=== PATIENT | female | born 1965 | race Caucasian/White ===

== ENCOUNTER 2019-02-14 03:20 | Emergency (ER) | payer MEDICARE ==
--- NOTE | 2019-02-14 04:24 | ED ---
Shortness of Breath - HPI Summary HPI Summary: A 53 y/o female brought in by [facility] ambulance presents to [facility] with a chief complaint of SOB this morning. She was given 1 nebulizer treatment en route. She says that when she woke up she felt like she could not catch her breath. The patient has a Hx of asthma and is an occasional smoker. She notes that she has been hospitalized before for SOB. She has a Hx of sleep apnea and wakes up with headaches. She has albuterol pumps and tried it this morning, but it did not alleviate her symptoms. - History of Current Complaint Chief Complaint: EDShortnessOfBreath Time Seen by Provider: 02/14/19 04:11 Hx Obtained From: Patient Onset/Duration: Sudden Onset, Lasting Minutes, Still Present Timing: Constant Current Severity: Moderate Dyspnea At: Rest Aggravating Factors: Nothing Alleviating Factors: Nothing Associated Signs & Symptoms: Cough (Nonproductive) - Allergy/Home Medications Allergies/Adverse Reactions: Allergies Allergy/AdvReac Type Severity Reaction Status Date / Time cat dander Allergy Unknown Verified 08/06/18 15:30 Reaction Details doxycycline Allergy Hives Verified 08/06/18 15:28 erythromycin base Allergy Hives Verified 08/06/18 15:28 mold Allergy Unknown Verified 08/06/18 15:30 Reaction Details pollen extracts Allergy Unknown Verified 08/06/18 15:30 Reaction Details Home Medications: Home Medications Benzonatate CAP* [Tessalon 100 MG CAP*] 100 mg PO TID PRN 02/14/19 [History Confirmed 02/14/19] Dicyclomine CAP* [Bentyl CAP*] 10 mg PO TID PRN 02/14/19 [History Confirmed ] Melatonin [Meladox] 3 mg PO BEDTIME 02/14/19 [History Confirmed 02/14/19] Mirabegron [Myrbetriq] 25 mg PO DAILY 02/14/19 [History Confirmed 02/14/19] PMH/Surg Hx/FS Hx/Imm Hx Respiratory History: Reports: Hx Asthma, Hx Sleep Apnea Sensory History: Denies: Hx Deafness EENT History: Denies: Hx Deafness - Immunization History Immunizations Up to Date: Yes Infectious Disease History: No Infectious Disease History: Denies: Traveled Outside the [place] in Last 30 Days - Family History Known Family History: Negative: Blood Disorder - Social History Alcohol Use: Rare Substance Use Type: Reports: None Smoking Status (MU): Current Some Day Smoker Review of Systems Negative: Fever Positive: Shortness Of Breath, Cough All Other Systems Reviewed And Are Negative: Yes Physical Exam - Summary Physical Exam Summary: Constitutional: Well-developed, Well-nourished, Alert. (-) Distressed Skin: Warm, Dry HENT: Normocephalic; Atraumatic Eyes: Conjunctiva normal Neck: Musculoskeletal ROM normal neck. (-) JVD, (-) Stridor, (-) Tracheal deviation Cardio: Rhythm regular, bradycardic in the 50s, Heart sounds normal; Intact distal pulses; symmetric. Pulmonary/Chest wall: Effort normal. (-) Respiratory distress, (-) Wheezes, (-) Rales Abd: Soft, (-) tenderness, (-) Distension, (-) Guarding, (-) Rebound Musculoskeletal: (-) Edema Neuro: Alert, Oriented x3 Psych: Mood and affect Normal Triage Information Reviewed: Yes Vital Signs On Initial Exam: Initial Vitals Temp Pulse Resp BP Pulse Ox 97.3 F 50 17 140/66 97 02/14/19 03:32 02/14/19 03:32 02/14/19 03:32 02/14/19 03:32 02/14/19 03:32 Vital Signs Reviewed: Yes Diagnostics - Vital Signs Vital Signs Temp Pulse Resp BP Pulse Ox 02/14/19 03:32 97.3 F 50 17 140/66 97 - Laboratory Lab Statement: Any lab studies that have been ordered have been reviewed, and results considered in the medical decision making process. Course/Dx - Course Course Of Treatment: A 53 y/o female brought in by [facility] ambulance presents to [facility] with a chief complaint of SOB this morning. The physical exam was unremarkable except that she was bradycardic in the 50s. The patient notes that she can follow up with Dr. Hay, funeral director/embalmer/owner. The patient will be discharged and follow up with her PCP and Dr. Hay. The patient is agreeable with this plan. - Diagnoses Provider Diagnoses: Sleep apnea Discharge - Sign-Out/Discharge Documenting (check all that apply): Patient Departure - DC Patient Received Moderate/Deep Sedation with Procedure: No - Discharge Plan Condition: Good Disposition: HOME Patient Education Materials: Sleep Apnea (DC) Referrals: Thomas Chandler MD [Primary Care Provider] - - Billing Disposition and Condition Condition: GOOD Disposition: Home - Attestation Statements Document Initiated by Raffi: Yes Documenting Scribe: Germán Ivan Provider For Whom Raffi is Documenting (Include Credential): Curtis Quinones MD Scribjeff Attestation: IGermán, scribed for Curtis Quinones MD on 02/14/19 at 0630. Scribe Documentation Reviewed: Yes Provider Attestation: The documentation as recorded by the Germán pizano accurately reflects the service I personally performed and the decisions made by me, Curtis Quinones MD Status of Scribe Document: Viewed
[2019-02-14 04:46] VITALS: BP 138/68
== END 2019-02-14 04:56 | disposition home or self-care (01) ==
LOC: ED 03:20
DX: G47.30 Sleep apnea, unspecified (principal); F17.210 Nicotine dependence, cigarettes, uncomplicated; Z79.899 Other long term (current) drug therapy
CPT/HCPCS: 99283

== ENCOUNTER 2019-03-06 14:29 | Emergency (ER) | payer MEDICARE ==
--- OUTSIDE RECORDS SUMMARY | 2019-03-06 14:34 | XMS REPORT | Continuity of Care Document ---
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 ETOH Use Occasionally consumes alcohol Tobacco Use Start: Unknown End: Patient is a former Unknown smoker Tobacco Use Start: Unknown End: Patient is a former quit in 2000 Unknown smoker Smoking Status Reviewed: 02/26/19 Patient is a former quit in 2000 smoker Exercise Exercises sporadically walks on occ Type/Frequency Allergies, Adverse Reactions, Alerts Active Allergies Reaction Severity Comments Date Cat Dander swelling 05/03/2018 [place] Needle Oil (Pinus itchy eyes and 05/03/2018 [place]) sneezing Pollen itchy eyes, runny nose 05/03/2018 Mold itchy eyes, runny nose 05/03/2018 Erythromycin hives and vomit 06/20/2018 Doxycycline hives/vomits 06/20/2018 Medications Active Medications SIG Qnty Indications Ordering Date Provider Xopenex HFA 2 puffs by mouth 3units Thomas Timmons 11/26/2018 every 4 hours as Jo Ann Chandler 45mcg/Act Aerosol needed Advair Diskus 1 puff twice a day 60units Thomas Timmons 10/29/2018 Jo Ann Chandler 250-50mcg/Dose Aerosol Duloxetine HCL take 1 capsule by 60caps R51 Thomas Timmons 10/18/2018 30mg mouth every morning Jo Ann Chandler Caps DR Nunes for 1 week, then 2 tabs daily Albuterol Sulfate every 4-6hrs.as 75ml Thomas E. 10/11/2018 directed Jo Ann Chandler (2.5mg/3ML) 0.083% Nebulizer Dicyclomine HCL take 1 tablet by 120tabs Thomas E. 08/06/2018 mouth 4 times a day Jo Ann Chandler 20mg Tablets as needed Fish Oil 1 by mouth twice a Unknown 1000mg day Capsules Fluticasone 2 sprays each 16gm Thomas E. Propionate nostril daily Jo Ann Chandler 50mcg/Act Suspension Montelukast Sodium 1 by mouth every day 90tabs Thomas E. Jo Ann Chandler 10mg Tablets Oxygen please use o2 at Unknown Misc 2l/min during exertion, pls provide pt with portable o2 concentrator Aspirin 1 by mouth every day 90tabs Thomas EJessica 81mg Jo Ann Chandler Tablets Omeprazole 1 by mouth every day 90caps Thomas E. 20mg Jo Ann Chandler Capsules Lyrica 1 four times daily 120caps Thomas E. 100mg Jo Ann Chandler Capsules Myrbetriq one daily 90tabs Thomas E. 25mg Jo Ann Chandler Tablets ER 24HR Elmiron take 1 capsule by 270caps Thomas E. 100mg mouth three times Jo Ann Chandler Capsules daily as needed Estradiol one daily 90tabs Thomas E. 2mg Jo Ann Chandler Tablets History Medications Nebulizer every 4-6 hours as 1units Thomas Timmons 10/29/2018 - Misc needed Jo Ann Chandler 10/29/2018 Xopenex HFA 2 puffs inhaled 45gm Thomas E. 08/06/2018 - 45mcg/Act every 4h as needed Jo Ann Chandler 11/26/2018 Aerosol for shortness of breath. Clozapine one at bedtime 30tabs Thomas Timmons 05/15/2018 - 200mg Jo Ann Chandler 06/18/2018 Tablets Advair Diskus inhale one puff by mitchel Timmons - mouth twice a day Jo Ann Chandler 10/29/2018 100-50mcg/Dose Aerosol Albuterol prn Unknown - 10/11/2018 Quetiapine Fumarate 1 tab by mouth Unknown - every night at 10/18/2018 200mg Tablets bedtime Immunizations CPT Code Status Date Vaccine Lot # [id number] Given 08/21/2014 Tetanus And Diptheria (Td) For Adult Use Preservative Free 22221 Given Unknown Pneumonia Vaccine Vital Signs Date Vital Result Comment 02/26/2019 2:34pm Height 62 inches 5'2" Weight 158.25 lb Heart Rate 76 /min BP Systolic 120 mmHg BP Diastolic 76 mmHg Body Temperature 97.9 F O2 % BldC Oximetry 96 % BMI (Body Mass Index) 28.9 kg/m2 10/18/2018 3:55pm Height 62 inches 5'2" Weight 130.00 lb Heart Rate 84 /min BP Systolic Sitting 95 mmHg BP Diastolic Sitting 77 mmHg Body Temperature 97.3 F O2 % BldC Oximetry 92 % BMI (Body Mass Index) 23.8 kg/m2 08/15/2018 11:26am Height 62 inches 5'2" Weight 128.00 lb with boots Heart Rate 80 /min BP Systolic Sitting 106 mmHg lue reg cuff BP Diastolic Sitting 64 mmHg lue reg cuff BP Systolic Standing 108 mmHg lue reg cuff BP Diastolic Standing 64 mmHg lue reg cuff BMI (Body Mass Index) 23.4 kg/m2 Ejection Fraction 65-70% echo.08/01/17 06/20/2018 9:40am Height 62 inches 5'2" Weight 129.31 lb with shoes Heart Rate 62 /min BP Systolic 100 mmHg Rue reg cuff BP Diastolic 70 mmHg Rue reg cuff BP Systolic Sitting 114 mmHg Lue reg cuf f BP Diastolic Sitting 70 mmHg Lue reg cuf f BP Systolic Standing 122 mmHg Lue reg cuff BP Diastolic Standing 70 mmHg Lue reg cuff Respiratory Rate 16 /min BMI (Body Mass Index) 23.6 kg/m2 05/03/2018 11:39am Height 62 inches 5'2" Weight 130.00 lb Heart Rate 60 /min BP Systolic Sitting 102 mmHg BP Diastolic Sitting 78 mmHg O2 % BldC Oximetry 96 % BMI (Body Mass Index) 23.8 kg/m2 Results Test Date Facility Test Result H/L Range Note Laboratory test 08/07/2018 [facility] Surgical SEE RESULT [address] Pathology BELOW [place], [place] [id number] [phone] 1 SEE RESULT BELOW Name: RUPINDER CAMP : [address]: Az Rush MD Acct: [id number] Unit: [id number] AGE: 52 Location: [facility] Re08/07/18 SEX: F Status: REG REF SPEC: [id number] STEVENSON: 08/07/[address]: Az Rush MD REQ: [id number] RECD: 08/07/18 STATUS: SOUT _ ORDERED: LEVEL 1 FINAL DIAGNOSIS Event monitor, removal: Foreign body (Medtronic generator) (gross diagnosis) PRE-OPERATIVE DIAGNOSIS Paroxysmal atrial fibrillation. GROSS DESCRIPTION The specimen is received fresh with no source identified, and consists of a 4.5 x 0.7 x 0.4 cm delgadillo mobile paramedical examiner. The following inscription is identified: [email or web address] Reveal LINQ SN [id number] 15. Per established hospital medical staff protocol, no tissue is submitted. Gross only. Signed by and Reported on: Edie Hidalgo MD 08/08/18 0953 END OF REPORT DEPARTMENT OF PATHOLOGY, [address] [place] [address] Earl Craven M.D. Director [facility] # [id number] Procedures Date Code Description Status 08/07/2018 69926 Removal Loop Recorder Completed 07/30/2018 31714 Stress Test Completed 06/20/2018 95881 EKG Tracing & Interpretation Completed Encounters Type Date Location Provider Dx Diagnosis Office Visit 10/18/2018 3:20p [facility] Juan Chandler, R51 Headache Katrin Cherry R09.02 Hypoxemia Office Visit 08/15/2018 11:15a [facility] Az Suarez I48.0 Paroxysmal atrial Of Yonis Rush M.D. fibrillation R07.9 Chest pain, unspecified Office Visit 06/20/2018 10:00a [facility] Az Suarez I48.0 Paroxysmal atrial Of Yonis Rush M.D. 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, unspecified I48.0 Paroxysmal atrial fibrillation Z12.31 Encntr screen mammogram for malignant neoplasm of breast N30.10 Interstitial cystitis (chronic) without hematuria Plan of Treatment Future Appointment(s):04/01/2019 11:00 am - Luiza Galindo DO at [facility] Internal Medicine - [address]/28/2019 2:00 pm - Claudia Hay MD at [facility]02/26/2019 - Luiza Galindo, DOM79.7 FibromyalgiaNew Therapy:Referral:Sadie Riceamp; [facility] Physical TherapistFollow up:in 1 piavoR63.909 Unspecified asthma, majlhurloiokpW67.10 Interstitial cystitis (chronic) without hematuriaReferral:Nate Olvera MD, OadbjbwC50.220 Encounter for screening for lipoid tpqpsrvweR13.4 Encounter for screening for human immunodeficiency virus [HiZ13.1 Encounter for screening for diabetes mellitus
[2019-03-06 15:17] VITALS: BP 120/64
--- NOTE | 2019-03-06 15:49 | UC ---
General HPI - HPI Summary HPI Summary: Pt presents to states since october she has discomfort in her legs and back. Pt reports a remote history of renal problems - was treated by a urologist in [place]. Pt states over the past 1 month she has been feeling like she is not emptying her bladder. pt sates she saw Dr. Leon last week - had lab work done and is schedule to see her again Th. Pt states feels she should be referred to a urologist. States can't drink as much water as usual and feels like not emptying bladder. no fever, chills. No analgesia. Medications review - History of Current Complaint Chief Complaint: UCGU Stated Complaint: URINARY COMPLAINT Time Seen by Provider: 03/06/19 15:28 Hx Obtained From: Patient Onset Severity: Moderate Current Severity: Moderate Pain Intensity: 7 - Allergy/Home Medications Allergies/Adverse Reactions: Allergies Allergy/AdvReac Type Severity Reaction Status Date / Time cat dander Allergy Unknown Verified 03/06/19 15:17 Reaction Details doxycycline Allergy Hives Verified 03/06/19 15:17 erythromycin base Allergy Hives Verified 03/06/19 15:17 mold Allergy Unknown Verified 03/06/19 15:17 Reaction Details pollen extracts Allergy Unknown Verified 03/06/19 15:17 Reaction Details PMH/Surg Hx/FS Hx/Imm Hx Previously Healthy: Yes Psychological History: Depression - Surgical History Surgical History: Yes Surgery Procedure, Year, and Place: hysterectomy, choley - Family History Known Family History: Positive: Non-Contributory Negative: Blood Disorder - Social History Occupation: Unemployed Lives: With Family Alcohol Use: Occasionally Substance Use Type: None Smoking Status (MU): Current Some Day Smoker Type: eCigarettes Review of Systems All Other Systems Reviewed And Are Negative: Yes Constitutional: Positive: Negative Skin: Positive: Negative Eyes: Positive: Negative Respiratory: Positive: Negative Cardiovascular: Positive: Negative Genitourinary: Positive: Negative Motor: Positive: Negative Neurovascular: Positive: Negative Is Patient Immunocompromised?: No Physical Exam - Summary Physical Exam Summary: Vital Signs Reviewed: Yes A+Ox3, no distress, ambulating in room Eyes: Conjunctiva Clear, CIRA. EOM intact and full ENT: Hearing grossly normal TM x 2 clear, mmoist, uvula midline, no exudate, no erythema Neck: Positive: Supple Respiratory: Positive: No respiratory distress, No accessory muscle use + CTA throughout no w/r, no CVA Cardiovascular: RRR nl s1, s2 no m/r CBT <2 sec abd soft + BS nt/nd no guarding, no distension, no CVA Musculoskeletal Exam:ambulatory without diffculty. No spinous process pain c/t/l /s Full AROM cpsine no crepitus Neurological: Positive: Alert, + sensation throughout, appropriate Psychological: Positive: Normal Response To marketing production coordinator Skin: Positive: no rash, no ecchymosis Triage Information Reviewed: Yes Vital Signs: Initial Vital Signs Temp 98.1 F 03/06/19 15:03 Pulse 72 03/06/19 15:03 Resp 18 03/06/19 15:03 BP 120/64 03/06/19 15:03 Pulse Ox 97 03/06/19 15:03 Diagnostics - Radiology No standard instances Radiology Interpretation Completed By: Radiologist - Patient Name: RUPINDER BROTHERS Medical Record#: [id number] Ordering Physician: Agnieszka Chandra MD Acct.#: [id number] : 1965 Age: 53 Sex: F Location: [facility] Exam Date: 03/06/19 160 ADM Status: REG ER Order Information: US RENAL AND BLADDER Accession Number: [id number] CPT: 04577 Indication: History of renal disease. Sensation of incomplete bladder emptying. Question hydronephrosis and postvoid residual volume in the urinary bladder. Comparison: No relevant prior exams available on the [facility] PACS for comparison. Technique: Ultrasound kidneys and urinary bladder. Report: 9.6 x 4.0 x 3.2 cm RIGHT kidney with normal cortical thickness and echogenicity is remarkable for a 0.9 cm maximum dimension hyperechoic nonshadowing lesion at the lower pole cortex consistent with a benign angiomyolipoma. This lesion is very low suspicion given small size. No conspicuous stones or hydronephrosis. 10.8 x 5.3 x 4.8 cm LEFT kidney demonstrates normal cortical thickness and echogenicity. 1.4 cm unilocular cortical medullary junction cyst at the lower pole. No conspicuous stones or hydronephrosis. Prevoid urinary bladder volume estimated at 322 mL. Unremarkable 0.3 cm bladder wall thickness. No focal bladder wall lesions evident. Bilateral ureteral jets documented. Post void residual volume in the urinary bladder estimated at 9 mL. IMPRESSION: #. Negative for hydronephrosis. #. Post void residual volume in the urinary bladder estimated at only 9 mL. #. Negative for urolithiasis. <Electronically signed by Thomas Villarreal MD in OV > 03/06/191810 Dictated By: Thomas Villarreal MD Dictated Date/Time: 03/06/191810 Transcribed Date/Time: 03/06/191804 Copy to: CC:Luiza Leon DO; Agnieszka Chandra MD Imaging - [facility] Imaging - [facility] [address] [address] ph ([phone]) ph ([phone]) ph ([phone]) This report is only to be considered final once signed by the Provider(s) as displayed in the "<Electronically Signed by >" field (s). Absence of a signature indicates the report is in a draft status and still needs to be finalized. In the event this document was created by someone other than the signing Provider, the individual initiating the document will be listed in the "Entered by:" or "Dictated by:" sierra. 1 of 2 Re-Evaluation - Re-Evaluation First Eval Comment: reviewed pt's lab work - non concerning. urinalysis - non concerning. reviewed u/s pt aware of cyst. will follow-up with Dr. Leon this week as scheduled Course/Dx - Course Course Of Treatment: Pt presents to UC concerned that is not emptying her bladder and concerned about back pain being related to kidneys pt has a remote ho kidney disease - not current medciation, no current urologist /toy designer No analgesia taken on exam VSS pt with mild low back pain, no CVA will check urine, renal ultrasound, post void residual pt comfrotable and in agreement with plan decline APAP at this time - Diagnoses Provider Diagnosis: Flank pain Discharge - Sign-Out/Discharge Documenting (check all that apply): Patient Departure All imaging exams completed and their final reports reviewed: Yes - Discharge Plan Condition: Stable Disposition: HOME Patient Education Materials: Flank Pain (ED) Referrals: Luiza Leon DO [Primary Care Provider] - Additional Instructions: Your recent bloodwork is normal and nonconcerning regarding your kidney function Your urine today does not show findings of a bladder infection, does not show blood, and does not show dehydration The utlrasound shows you are emptying your bladder completely and normally. This study also shows a small cyst in your left kidney. The following is recommend: keep your appointment with Dr. Leon on okay to take tylenol for discomfort Contact your doctor or return with questions or concernsw - Billing Disposition and Condition Condition: STABLE Disposition: Home
== END 2019-03-06 18:39 | disposition home or self-care (01) ==
LOC: UCEAST 14:29
DX: R10.9 Unspecified abdominal pain (principal); F32.9 Major depressive disorder, single episode, unspecified; F17.210 Nicotine dependence, cigarettes, uncomplicated
CPT/HCPCS: 76770; 81003; 99211; G0463

== ENCOUNTER 2019-03-23 16:40 | Emergency (ER) | payer MEDICARE ==
[2019-03-23 16:57] VITALS: BP 111/56
--- NOTE | 2019-03-23 17:20 | UC ---
Lower Extremity/Ankle HPI - HPI Summary HPI Summary: 1. PATIENT COMPLAINS OF SEVERAL DAYS OF PAIN, REDNESS AND SWELLING AT HER RIGHT FIRST MTP JOINT. DENIES ANY RECENT INJURY ALTHOUGH SHE DID BREAK HER FOOT IN THIS AREA ABOUT 8 YEARS AGO. NO H/O GOUT. 2. HAS HAD SEVERAL WEEKS OF DYSURIA AND FREQUENCY. WAS HERE TO HAVE THIS EVALUATED AT [facility] BUT URINE CULTURE WAS NEGATIVE. HAS H/O FREQUENT UTI. - History of Current Complaint Chief Complaint: UCLowerExtremity Stated Complaint: FOOT COMPLAINT Time Seen by Provider: 03/23/19 16:52 Hx Obtained From: Patient Onset/Duration: Gradual Onset, Lasting Days, Still Present Severity Initially: Mild Severity Currently: Mild Pain Intensity: 2 Pain Scale Used: 0-10 Numeric Aggravating Factor(s): Standing, Ambulation Alleviating Factor(s): Rest Able to Bear Weight: Yes - Allergies/Home Medications Allergies/Adverse Reactions: Allergies Allergy/AdvReac Type Severity Reaction Status Date / Time cat dander Allergy Unknown Verified 03/23/19 16:56 Reaction Details doxycycline Allergy Hives Verified 03/23/19 16:56 erythromycin base Allergy Hives Verified 03/23/19 16:56 mold Allergy Unknown Verified 03/23/19 16:56 Reaction Details pollen extracts Allergy Unknown Verified 03/23/19 16:56 Reaction Details PMH/Surg Hx/FS Hx/Imm Hx - Additional Past Medical History Additional PMH: sleep apnea, fibromyalgia, diverticulitis, ibs, chronic fatigue, arthritis, barretts, broken heart syndrome Respiratory History: Asthma Neurological History: Migraine - Surgical History Surgical History: Yes Surgery Procedure, Year, and Place: hysterectomy, choley - Family History Known Family History: Positive: Non-Contributory Negative: Blood Disorder - Social History Alcohol Use: Occasionally Substance Use Type: None Smoking Status (MU): Current Some Day Smoker Type: eCigarettes Review of Systems All Other Systems Reviewed And Are Negative: Yes Constitutional: Positive: Negative Skin: Positive: Other - ERYTHEMA RIGHT GREAT TOE Respiratory: Positive: Negative Cardiovascular: Positive: Negative Gastrointestinal: Positive: Negative Musculoskeletal: Positive: Arthralgia, Edema Physical Exam Triage Information Reviewed: Yes Appearance: Well-Appearing, No Pain Distress, Well-Nourished Vital Signs: Initial Vital Signs Temp 98.0 F 03/23/19 16:52 Pulse 83 03/23/19 16:52 Resp 18 03/23/19 16:52 BP 111/56 03/23/19 16:52 Pulse Ox 97 03/23/19 16:52 Vital Signs Reviewed: Yes Eyes: Positive: Conjunctiva Clear ENT: Positive: Hearing grossly normal Neck: Positive: Supple Respiratory: Positive: No respiratory distress, No accessory muscle use Cardiovascular: Positive: Pulses Normal Abdomen Description: Positive: Soft Musculoskeletal: Positive: ROM Intact, Edema @ - RIGHT GREAT TOE MTP JOINT Psychological: Positive: Age Appropriate Behavior Skin: Positive: Rashes - ERYTHEMA RIGHT GREAT TOE MTP JOINT Diagnostics - Laboratory Lab Results: URINE DIP SP. GR. 1.015 AND UNREMARKABLE. - Radiology RIGHT GREAT TOE XRAYS Radiology Interpretation Completed By: Radiologist Summary of Radiographic Findings: No acute fracture or traumatic malalignment of the right first toe. Lower Extremity Course/Dx - Course Course Of Treatment: PATIENTS CLINICAL PRESENTATION IS MOST CONSISTENT WITH A SUPERFICIAL CELLULITIS OF HER RIGHT GREAT TOE. X-RAY DOES NOT SHOW ANY BONY INJURY. SYMPTOMS NOT TYPICAL OF GOUT HOWEVER I HAVE ENCOURAGED HER TO FOLLOW UP WITH HER PCP FOR FURTHER EVALUATION OF THIS A POSSIBLE UNDERLYING CAUSE. PATIENT'S URINE DIP WAS AGAIN NEGATIVE. I SUSPECT HER SYMPTOMS ARE RELATED TO HER KNOWN DIAGNOSIS OF INTERSTITIAL CYSTITIS. I HAVE ENCOURAGED HER TO FOLLOW UP WITH HER UROLOGIST TO DISCUSS TREATMENT OPTIONS. - Differential Dx/Diagnosis Provider Diagnosis: Cellulitis of great toe, right, Dysuria Discharge - Sign-Out/Discharge Documenting (check all that apply): Patient Departure All imaging exams completed and their final reports reviewed: Yes - Discharge Plan Condition: Stable Disposition: HOME Prescriptions: Cephalexin CAP* [Keflex 500 CAP*] 1,000 mg PO BID #28 cap Phenazopyridine TAB* [Pyridium TAB*] 200 mg PO TID #6 tab Patient Education Materials: Cellulitis (ED), Interstitial Cystitis (ED) Referrals: [facility] [Provider Group] - 2 Weeks Luiza Galindo DO [Primary Care Provider] - 2 Weeks Additional Instructions: X-RAYS OF YOUR RIGHT GREAT TOE SHOW MILD SOFT TISSUE SWELLING BUT NO ACUTE FRACTURE OR TRAUMATIC MALALIGNMENT. YOUR SYMPTOMS MAY BE DUE TO CELLULITIS ( SKIN INFECTION). WILL COVER WITH ANTIBIOTICS. TAKE TWICE DAILY FOR THE FULL 7 DAYS. CLINICALLY YOUR SYMPTOMS ARE NOT ENTIRELY CONSISTENT WITH GOUT BUT CERTAINLY THIS IS POSSIBLE. RECOMMEND YOU DISCUSS THIS WITH YOUR PCP AT YOUR NEXT VISIT. YOUR URINE DIP TODAY WAS NEGATIVE AGAIN. WE ARE COVERING YOU WITH ANTIBIOTICS ANYWAY FOR YOUR POSSIBLE CELLULITIS. YOUR INTERSTITIAL CYSTITIS MAY BE THE CAUSE OF YOUR BLADDER DISCOMFORT. CALL YOUR UROLOGIST FOR FURTHER EVALUATION. INTERSTITIAL CYSTITIS What is bladder pain syndrome? Bladder pain syndrome is a condition that causes people to have bladder pain and urinate often. Bladder pain syndrome is often called "BPS" for short. It is also sometimes called "painful bladder syndrome" or "interstitial cystitis." BPS can happen in both men and women, but it is more common in women. Doctors do not know what causes BPS, but some doctors suspect it might be caused by abnormal changes in the lining of the bladder. Sometimes, BPS happens on its own. Other times, it starts after a person has: -An infection of the urinary tract, vagina, or prostate -Surgery on the bladder, pelvis, or back -An injury to the pelvic area or buttocks What are the symptoms of BPS? All people with BPS have bladder pain that gets better after urinating. Other common symptoms include: -Feeling the need to urinate often, during the day and night (even if you don't actually urinate) -Urinating often, during the day and night -Pain in the lower belly or around the area where urine leaves the body Symptoms of BPS are different from person to person and can be mild or severe. People might not have symptoms every day. But they can have "flares," which are times when their symptoms get worse. Some people find that their symptoms get worse at certain times, such as: -After they have certain foods or drinks -During certain times of their monthly cycle (in women) -After having sex or sitting for a long time -During times of stress Is there a test for BPS? There is no one test to check for BPS. But your doctor or nurse will talk with you, do an exam, and probably do a urine test. Depending on the results, your doctor might do other tests, too. For example, some people have a test called "cystoscopy." During cystoscopy, a doctor puts a thin tube with a camera on the end into the opening in the body where urine comes out (called the urethra). Then he or she advances the tube until it reaches the bladder. That way the doctor can look at the inside of the bladder to see if it is abnormal. How is BPS treated? There are different treatments for BPS. Most people need more than one treatment. Different treatments can include: -Bladder training You can train your bladder to urinate less often by holding your urine for longer periods of time. For example, if you feel the need to urinate every 30 minutes, try to wait and urinate every 45 minutes. -Physical therapy Many people with BPS have tight and painful muscles in the lower belly, groin, and buttocks. A physical therapist can teach you exercises to help relax these muscles. -Medicines Doctors can use different medicines to treat BPS. Some medicines help heal the bladder lining, and others can reduce pain. Some medicines come as pills. Others come as liquids and go into the bladder through a tube that is put up the urethra. -Surgery A person might have surgery if he or she still has symptoms after trying all other treatments. During surgery, a doctor puts a small device in the lower back that connects to the nerve that goes to the bladder. The device sends electrical signals to the nerve that can stop it from feeling pain. Can BPS flares be prevented? To help prevent flares, you can: -Avoid the foods and drinks that make your symptoms worse. -Avoid activities that make your symptoms worse. -Get treated quickly for bladder infections, which can make BPS symptoms worse. - Billing Disposition and Condition Condition: STABLE Disposition: Home
== END 2019-03-23 18:15 | disposition home or self-care (01) ==
LOC: UCEAST 16:40
DX: L03.031 Cellulitis of right toe (principal); R30.0 Dysuria; J45.909 Unspecified asthma, uncomplicated; F17.210 Nicotine dependence, cigarettes, uncomplicated
CPT/HCPCS: 81002; 99212; G0463

== ENCOUNTER 2019-11-21 14:36 | Emergency (ER) | payer MEDICARE, MEDICAID, OTHER ==
--- NOTE | 2019-11-21 15:33 | ED ---
Influenza-Like Illness - HPI Summary HPI Summary: 54 y/o F w hx asthma, immunodeficiency, chronic home O2 use p/w flu like symptoms. Patient follows w Dr. Hay for asthma. Normally on 2 L of oxygen at home PRN. Her normal O2 Sat is 94%. At home O2 was 87% while awake and 81% while asleep. Has also had cough and low grade fever. [place] sick on 10/16, had low grade fevers. Has not been on oxygen for intermittently for several weeks 2/ 2 supply (transitioning to a different company). Now back on at night. Of note, she did fly to [place] end of Sep (flew through [place]). Additionally reports hx GI problems (chronic), intermittent constipation/diarrhea. Also feels bloated at times and has SOB 2/[address] Rodriguez. Did have sharp stabbing in LLQ, GI is trying to schedule a colonoscopy. - History of Current Complaint Chief Complaint: EDFluSymptoms Time Seen by Provider: 11/21/19 14:51 Hx Obtained From: Patient Onset/Duration: Lasting Days, Still Present - Allergy/Home Medications Allergies/Adverse Reactions: Allergies Allergy/AdvReac Type Severity Reaction Status Date / Time cat dander Allergy Unknown Verified 04/24/19 12:47 Reaction Details doxycycline Allergy Hives Verified 04/24/19 12:47 erythromycin base Allergy Hives Verified 04/24/19 12:47 mold Allergy Unknown Verified 04/24/19 12:47 Reaction Details pollen extracts Allergy Unknown Verified 04/24/19 12:47 Reaction Details Home Medications: Home Medications Dicyclomine CAP* [Bentyl CAP*] 10 mg PO QID PRN 02/14/19 [History Confirmed 10/10] Melatonin 3 mg PO BEDTIME PRN 02/14/19 [History Confirmed 11/21/19] Ondansetron TAB* [Zofran 4 MG Tab*] 4 mg PO Q6H PRN 04/17/19 [History Confirmed 11/21/19] Fluticas/Salmet 115/21 HFA(NF) [Advair HFA 115/21 (NF)] 2 puff INH BID 04/24/19 [History Confirmed 11/21/19] Aspirin EC TAB* [Ecotrin EC Low Dose 81 MG*] 81 mg PO DAILY 11/21/19 [History Confirmed 11/21/19] Hydroxychloroquine TAB* [Plaquenil TAB*] 200 mg PO BID 11/21/19 [History Confirmed 11/21/19] Lubiprostone 24 MCG CAP (NF) [Amitiza (NF)] 24 mcg PO BID 11/21/19 [History Confirmed 11/21/19] Mirabegron (NF) [Myrbetriq (NF)] 50 mg PO DAILY 11/21/19 [History Confirmed 10/10] Mirtazapine TAB* [Remeron TAB*] 30 mg PO BEDTIME 11/21/19 [History Confirmed 10/10] Montelukast Sodium TAB* [Singulair TAB*] 10 mg PO DAILY 11/21/19 [History Confirmed 11/21/19] Olopatadine 0.2% (NF) [Pataday 0.2% (NF)] 1 drop BOTH EYES DAILY 11/21/19 [ History Confirmed 11/21/19] Omeprazole CAP (NF) [Prilosec CAP* 20 MG] 20 mg PO BID 11/21/19 [History Confirmed 11/21/19] Pentosan Polysulfate Sod (NF) [Elmiron (NF)] 100 mg PO TID 11/21/19 [History Confirmed 11/21/19] Pregabalin 100 mg CAP (*) [Lyrica 100 mg CAP (*)] 200 mg PO BEDTIME 11/21/19 [ History Confirmed 11/21/19] cycloSPORINE [Restasis Multidose] 0.05 % BOTH EYES BID 11/21/19 [History Confirmed 11/21/19] estradioL [Estradiol] 2 mg PO DAILY 11/21/19 [History Confirmed 11/21/19] PMH/Surg Hx/FS Hx/Imm Hx Cardiovascular History: Reports: Hx Atrial Fibrillation Respiratory History: Reports: Hx Asthma, Hx Sleep Apnea - Surgical History Surgery Procedure, Year, and Place: hysterectomy. cholecystectomy Infectious Disease History: No Infectious Disease History: Denies: Traveled Outside the [place] in Last 30 Days - Family History Known Family History: Positive: Other - colon cancer - Social History Alcohol Use: Occasionally Substance Use Type: Reports: None Hx Tobacco Use: Yes Smoking Status (MU): Current Some Day Smoker Type: eCigaremansi Review of Systems Positive: Fever Positive: Shortness Of Breath, Cough Positive: Abdominal Pain - LLQ, Diarrhea, Other - constipation, bloating All Other Systems Reviewed And Are Negative: Yes Physical Exam - Summary Physical Exam Summary: Constitutional: Well-developed, Well-nourished, Alert. (-) Distressed Skin: Warm, Dry HENT: Normocephalic; Atraumatic Eyes: Conjunctiva normal Neck: Musculoskeletal ROM normal neck. (-) JVD, (-) Stridor, (-) Nuchal rigidity Cardio: Rhythm regular, rate normal, Heart sounds normal; Intact distal pulses; Radial pulses are 2+ and symmetric. (-) Murmur Pulmonary/Chest wall: Effort normal. (-) Respiratory distress, bilateral wheezing, (-) Rales Abd: Soft, mild LLQ tenderness, (-) Distension, (-) Guarding, (-) Rebound Musculoskeletal: (-) Edema Lymph: (-) Cervical adenopathy Neuro: Alert, Oriented x3 Psych: Mood and affect Normal Triage Information Reviewed: Yes Vital Signs On Initial Exam: Initial Vitals Temp Pulse Resp BP Pulse Ox 98.1 F 81 16 122/76 96 11/21/19 15:00 11/21/19 15:00 11/21/19 15:00 11/21/19 15:00 11/21/19 15:00 Vital Signs Reviewed: Yes Procedures - Sedation Patient Received Moderate/Deep Sedation with Procedure: No Diagnostics - Vital Signs Vital Signs Temp Pulse Resp BP Pulse Ox 11/21/19 15:00 98.1 F 81 16 122/76 96 - Laboratory Result Diagrams: 11/21/19 16:05 11/21/19 16:05 Lab Statement: Any lab studies that have been ordered have been reviewed, and results considered in the medical decision making process. - Radiology CXR Radiology Interpretation Completed By: Radiologist - IMPRESSION: NO ACTIVE CARDIOPULMONARY DISEASE IS NOTED. ED physician has reviewed this imaging report. Flu Symptom Course/Dx - Course Course Of Treatment: 54 y/o F w hx asthma, chronic O2 use at night, chronic GI issues p/w fatigue, cough and reported hypoxia at home. - 96% on RA here. Well appearing. Tolerating PO. Lungs w scat wheezing, easy WOB, do not suspect PNA. CXR negative for PNA. No neck pain/nuchal rigidity, headache or other signs of meningismus. Regarding abdominal pain, hx similar in past, no fevers, normal WBC, abd soft. Has GI follow up scheduled. COVID sent. Encouraged to inhaler PRN at home, return for worsening symptoms. - Diagnoses Provider Diagnoses: Shortness of breath, Abdominal pain Discharge ED - Sign-Out/Discharge Documenting (check all that apply): Patient Departure - Discharge Plan Condition: Stable Disposition: HOME Patient Education Materials: Abdominal Pain (ED), Shortness of Breath (ED) Forms: COVID-19 Tested & Isolation Referrals: Jay Oviedo MD [Primary Care Provider] - Additional Instructions: You were seen in the emergency department for shortness of breath. Your x-ray didn't show pneumonia, your coronavirus test is pending. Please follow up w GI regarding your abdominal pain. Please take your inhaler as needed at home. Please follow up with your primary care doctor in next 2-3 days and return to emergency department for worsening pain, shortness of breath, or concerning symptoms. It was a pleasure taking care of you today. - Billing Disposition and Condition Condition: STABLE Disposition: Home - Attestation Statements Document Initiated by Scribe: Yes Documenting Scribe: Bethanie Becerril Provider For Whom Raffi is Documenting (Include Credential): Rickey Mendez MD Scribe Attestation: I, Bethanie Becerril, scribed for Rickey Mendez MD on 11/21/19 at 1950. Scribe Documentation Reviewed: Yes Provider Attestation: The documentation as recorded by the scribeBethanie accurately reflects the service I personally performed and the decisions made by me, Rickey Mendez MD Status of Scribe Document: Viewed
[2019-11-21 16:18] LABS: ABS Eosinophils 0.2 10^3/ul (0-0.6); ABS Lymphocytes 2.6 10^3/ul (1.0-4.8); ABS Monocytes 0.8 10^3/ul (0-0.8); ABS Neutrophils 4.5 10^3/ul (1.5-7.7); Eosinophil % 2.7 %; Hematocrit 43 % (35-47); Hemoglobin 14.7 g/dL (12.0-16.0); Lymphocyte % 31.6 %; Mean Corpuscular HGB Conc 34 g/dL (31-36); Mean Corpuscular Hemoglobin 32 pg (27-31); Mean Corpuscular Volume 95 fL (80-97); Platelet Count 386 10^3/uL (150-450); Red Blood Count 4.55 10^6 /uL (3.70-4.87); Red Cell Distribution Width 14 % (10-15); White Blood Count 8.2 10^3/uL (3.5-10.8)
[2019-11-21 16:35] LABS: Albumin 4.5 g/dL (3.2-5.2); Albumin/Globulin Ratio 1.4 (1-3); BUN/Creatinine Ratio 11.8 (8-20); EGFR Non-African American 79.3 (>60); Globulin 3.2 g/dL (2-4); Potassium 4.2 mmol/L (3.5-5.0); Total Bilirubin 0.3 mg/dL (0.2-1.0); Total Protein 7.7 g/dL (6.4-8.9)
[2019-11-21 19:09] VITALS: BP 0/0
== END 2019-11-21 19:07 | disposition home or self-care (01) ==
LOC: ED 14:36
DX: R10.32 Left lower quadrant pain (principal); R06.02 Shortness of breath; I48.91 Unspecified atrial fibrillation; R19.7 Diarrhea, unspecified; Z20.828 Contact with and (suspected) exposure to other viral communicable diseases; Z72.0 Tobacco use
CPT/HCPCS: 36415; 71045; 80053; 85025; 87635; 99283